=== PATIENT | female | born 2000 | race Caucasian/White ===

== ENCOUNTER → 2020-01-17 | Outpatient (CLI) | payer BC ==
--- NOTE | 2020-01-17 13:45 | Diagnostic Imaging Report ---
PROCEDURE: US Non-ob pelvis comp/trans. TECHNIQUE: Multiple realtime grayscale images were obtained of the pelvis in various projections endovaginally. Transabdominal imaging was also performed. INDICATION: Pelvic pain for several weeks. FINDINGS: Uterus measures 7.0 x 3.4 x 4.2 cm. Endometrium is 6 mm in thickness. No myometrial mass is detected. Right ovary measures 3.4 x 1.4 x 2.1 cm. Left ovary measures 3.7 x 3.0 x 3.4 cm. Left ovary does contain approximately 3.5 x 3.0 cm cyst. Small amount of adjacent free fluid is seen. There is blood flow to both ovaries. IMPRESSION: 3.5 cm left ovarian cyst. No other significant abnormality is detected. Dictated by: Dictated on workstation # [id number]
== END ==
LOC: RAD 12:00
PROVIDERS: ATTEND Nurse Practitioner Family
DX: N83.202 Unspecified ovarian cyst, left side (principal)
CPT/HCPCS: 76830; 76856